=== PATIENT | male | born 1985 | race Caucasian/White ===

== ENCOUNTER 2018-11-14 14:12 | Emergency (ER) | payer OTHER ==
[2018-11-14 14:25] VITALS: RESP 18
[2018-11-14 14:26] VITALS: BMI 24.3
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
[2018-11-14 16:37] VITALS: BP 128/89; PULSE 86; TEMP 98; O2SAT 99
--- NOTE | 2018-11-16 02:35 | CARD ---
APPROVED REPORT Date of service: 11/14/2018 EKG Measurement Heart [id number] <Conclusion> Normal sinus rhythm Normal ECG
== END 2018-11-14 16:38 | disposition home or self-care (01) ==
LOC: ED 14:12
DX: S29.9XXA Unspecified injury of thorax, initial encounter (principal); V49.40XA Driver injured in collision with unspecified motor vehicles in traffic accident, initial encounter; Y92.410 Unspecified street and highway as the place of occurrence of the external cause